=== PATIENT | male | born 1975 | race African-American/Black ===

== ENCOUNTER 2017-03-18 16:09 | Emergency (ER) | payer OTHER ==
[~2017-03-18] VITALS: Ht 175.3 cm; Wt 72.6 kg
[~2017-03-18 16:09] MED LIST: BACLOFEN 10MG T10 MG PO; CLONAZEPAM 0.50.5 M1 PO; CYCLOBENZAPRINE5 MG PO; DEPAKOTE 250MG250 M1 PO; DEPAKOTE ER500 MG PO; FLEXERIL PO; NAPROSYN500 MG PO; ONDANSETRON HCL4 M2 PO; OXTELLAR XR300 MG PO; PHENERGAN 25 MG25 M1 PO; PREDNISONE10 MG PO; PROMS25 WY RECTAL; TRAMADOL 50 MG50 MG PO
[2017-03-18] MEDS ORDERED: DEPAKOTE500 MG PO (16:46)
[2017-03-18] MEDS ORDERED: CLONAZEPAM 0.50.5 M1 PO (16:46)
[2017-03-18 16:47] LABS: HEMATOCRIT 41.9 % (42.0-52.0); HEMOGLOBIN 14.4 gm/dL (14.0-18.0); MCH 32.1 pg (26.0-34.0); MCHC 34.3 g/dL (28.0-37.0); MCV 93.6 fL (80.0-100.0); RBC 4.47 mil/uL (4.50-6.00); WBC 20.3 thou/uL (4.0-11.0)
[2017-03-18 16:54] LABS: CALCIUM 10.2 mg/dL (8.5-10.1); CREATININE 2.1 mg/dL (0.7-1.3); POTASSIUM 3.4 mmol/L (3.5-5.1)
[2017-03-18 16:59] LABS: TOTAL BILIRUBIN 0.5 mg/dL (<0.1-1.0); TOTAL PROTEIN 9.4 g/dL (6.4-8.2)
[2017-03-18] MEDS ORDERED: PENICILLIN VK500 M1 PO (19:24)
[2017-03-18] MEDS ORDERED: MOBIC15 MG PO (19:24)
== END 2017-03-18 19:25 | disposition home or self-care (01) ==
LOC: ER 16:09
PROVIDERS: Physician Assistant
DX: J02.0 Streptococcal pharyngitis (principal); N17.9 Acute kidney failure, unspecified; E86.0 Dehydration; T67.5XXA Heat exhaustion, unspecified, initial encounter; F31.9 Bipolar disorder, unspecified; G40.909 Epilepsy, unspecified, not intractable, without status epilepticus; F17.210 Nicotine dependence, cigarettes, uncomplicated; Z91.011 Allergy to milk products; X58.XXXA Exposure to other specified factors, initial encounter; Y93.89 Activity, other specified; Y92.89 Other specified places as the place of occurrence of the external cause; Y99.8 Other external cause status

== ENCOUNTER 2017-04-14 05:17 | Emergency (ER) | payer OTHER ==
[~2017-04-14] VITALS: Ht 175.3 cm; Wt 72.6 kg
[~2017-04-14 05:17] MED LIST changes: +DEPAKOTE500 MG PO; +MOBIC15 MG PO; +PENICILLIN VK500 M1 PO
== END 2017-04-14 05:32 | disposition home or self-care (01) ==
LOC: ER 05:17
DX: R56.9 Unspecified convulsions (principal); F31.9 Bipolar disorder, unspecified; F17.210 Nicotine dependence, cigarettes, uncomplicated; Z91.14 Patient's other noncompliance with medication regimen; Z91.011 Allergy to milk products